=== PATIENT | male | born 1960 | race Caucasian/White ===

== ENCOUNTER → 2017-04-11 | Outpatient (CLI) | payer OTHER ==
[~2017-04-11] MED LIST: ASPEC81 PO; LPT40 PO; LSN25 PO; NTRSLP4 SL; PLV75 PO; TPRSR25 PO
[2017-04-11 13:18] LABS: BASO % 0.4 %; BASO ABS # 0.03 K/uL (0-0.2); COMPLETE YES; EOS % 4.1 %; HEMATOCRIT 45.8 % (42-52); IG% 0.1 %; LYMPH % 33.3 %; LYMPH ABS # 2.36 K/uL (1.2-3.4); MEAN CORPUSCULAR HEMOGLOBIN 31.8 pg (25-34); MEAN CORPUSCULAR HGB CONC 32.8 g/dl (32-36); MEAN PLATELET VOLUME 11.2 fL (7.4-10.4); MONO % 13.1 %; PLATELET COUNT 275 K/uL (130-400); RED BLOOD COUNT 4.72 M/uL (4.7-6.1); WHITE BLOOD COUNT 7.09 K/uL (4.8-10.8)
[2017-04-11 14:01] LABS: ESTIMATED AVERAGE GLUCOSE 120 mg/dl; HA1C FLAG Normal (Normal)
[2017-04-11 14:49] LABS: ALT/SGPT 49 U/L (12-78); AST/SGOT 27 U/L (15-37); BLOOD UREA NITROGEN 14 mg/dl (7-18); BUN/CREATININE RATIO 15.2 (10-20); CARBON DIOXIDE 28 mmol/L (21-32); CHLORIDE 105 mmol/L (98-107); CHOLESTEROL 150 mg/dl (0-200); CREATININE 0.91 mg/dl (0.60-1.40); GLUCOSE 107 mg/dl (70-99); POTASSIUM 4.4 mmol/L (3.5-5.1); SODIUM 141 mmol/L (136-145); TRIGLYCERIDES 55 mg/dl (0-150); VERY LOW DENSITY LIPOPROT CALC 11 mg/dl
[2017-04-11 14:51] LABS: ALB/GLOB RATIO 1.1 (0.9-2); ALKALINE PHOSPHATASE 80 U/L (45-117); CHOLESTEROL/HDL RATIO 3.1; HDL CHOLESTEROL 48 mg/dl; LDL CHOLESTEROL CALCULATED 91 mg/dl
[2017-04-11 15:07] LABS: CALCIUM 9.5 mg/dl (8.5-10.1)
== END | disposition home or self-care (01) ==
LOC: C.LABBC 10:44
PROVIDERS: ATTEND Family Medicine
DX: I10 Essential (primary) hypertension (principal); E78.5 Hyperlipidemia, unspecified; I25.10 Atherosclerotic heart disease of native coronary artery without angina pectoris; R73.01 Impaired fasting glucose

== ENCOUNTER → 2017-12-27 | Day surgery (SDC) | payer OTHER ==
[2017-12-19 10:49] VITALS: Ht 174 cm; Wt 102.3 kg
[~2017-12-27] VITALS: Ht 174 cm; Wt 102.3 kg
[~2017-12-27] MED LIST changes: +ATOR-54 PO; +LIDOCAINE HCL 2% 2 ML VIAL (20MG/ML) ONE; -LPT40 PO; -NTRSLP4 SL; -PLV75 PO; +PROPOFOL IV EMULSION 10 MG/ML 20 ML VIAL IV ONE; +SODIUM CHLORIDE 0.9% 500ML 500 ML IV ONE; -TPRSR25 PO
--- NOTE | 2017-12-27 10:41 | Endo History and Physical ---
History & Physical Date of Service: Dec 27, 2017. Chief Complaint: screening Referring Physician: Julieta Shafer PA-C History of Present Illness 57 yo CM who presents for screening colonoscopy. Past Surgical History Hx Cardiac Surgery: Yes (HEART CATH/1 STENTS) Hx Internal Defibrillator: No Hx Pacemaker: No Hx Abdominal Surgery: No Hx Post-Op Nausea and Vomiting: No Hx Cancer Surgery: No Hx Thoracic Surgery: No Hx Orthopedic: No Hx Urinary Tract Surgery: No Family History None Social History Smoking Status: Former Smoker Hx Substance Use: No Hx Alcohol Use: No (RARELY) Allergies Coded Allergies: No Known Allergies (Verified , 12/27/17) Current Medications Reported Home Medications Medications Dose Route/Sig Max Daily Dose Days Date Category Lipitor (Atorvastatin) 20 Mg Tab 20 Mg PO QAM 12/19/17 Reported Aspirin EC Low Dose (Aspirin) 81 Mg Ectab 81 Mg PO QAM 30 01/22/16 Rx Lisinopril 2.5 Mg Tab 2.5 Mg PO QAM 30 01/22/16 Rx Vital Signs Weight (Kilograms): 102.27 Height (Feet): 5 Height (Inches): 8.5 Date Time Temp Pulse Resp B/P (MAP) Pulse Ox O2 Delivery O2 Flow Rate FiO2 12/27/17 10:37 36.7 86 20 120/90 (100) 99 Room Air Physical Exam General Appearance: WD/WN, no apparent distress Respiratory/Chest: Auscultation: breath sounds normal Cardiovascular: Heart Auscultation: RRR Abdomen: Bowel Sounds: normal Inspection & Palpation: soft, non-distended, no tenderness, guarding & rebound Assessment and Plan Assessment: 57 yo CM who presents for screening colonoscopy. Plan: Proceed with colonoscopy.
--- NOTE | 2017-12-27 11:38 | Discharge Instructions ---
Endoscopy Patient Instructions Date / Procedure(s) Performed Dec 27, 2017. Colonoscopy Allergy Information Coded Allergies: No Known Allergies (Verified , 12/27/17) Discharge Date / Findings Dec 27, 2017. Colon polyp Internal hemorrhoids Medication Instructions Stopped Medication(s): Took ASA yesterday OK to resume all medications today as prescribed Reported Home Medications Medications Dose Route/Sig Max Daily Dose Days Date Category Lipitor (Atorvastatin) 20 Mg Tab 20 Mg PO QAM 12/19/17 Reported Aspirin EC Low Dose (Aspirin) 81 Mg Ectab 81 Mg PO QAM 30 01/22/16 Rx Lisinopril 2.5 Mg Tab 2.5 Mg PO QAM 30 01/22/16 Rx Provider Instructions Activity Restrictions - No exercising or heavy lifting for 24 hours. - Do not drink alcohol the day of the procedure. - Do not drive a car or operate machinery until the day after the procedure. - Do not make any important decisions or sign important papers in 24 hours after the procedure. Following Day: - Return to full activity which may include returning to work/school. Diet Start your diet with liquids and light foods (jello, soup, juice, toast). Then eat your usual diet if not nauseated. Treatment For Common After Affects For mild abdominal pain, bloating, or excessive gas: - Rest - Eat lightly - Lie on right side Follow-Up Information Follow-up with Julieta Shafer PA-C as scheduled Anesthesia Information What You Should Know You have had a procedure that required some medicine to reduce anxiety and discomfort. This treatment is called moderate sedation. After receiving the treatment, you may be sleepy, but you will be able to breathe on your own. The effects of the treatment may last for several hours. Follow these instructions along with Activity/Diet recommendations noted above: * Do NOT do anything where dizziness or clumsiness would be dangerous. * Rest quietly at home today, then you can be up and about tomorrow. * Have a responsible person stay with you the rest of today. * You may have had an I.V. today. If so, you may take the dressing off later today. Recommendations Call your doctor if: * Trouble breathing * Continuous vomiting for more than 24 hours * Temperature above 101 degrees * Severe abdominal pain or bloating * Pain not relieved by pain medicine ordered * There is increased drainage or redness from any incision * A large amount of rectal bleeding greater than 2-3 tablespoons. (If you had a polyp/s removed or have hemorrhoids, a small amount of blood - from the rectum is to be expected.) * You have any unanswered questions or concerns. IN THE EVENT OF A SERIOUS EMERGENCY, GO TO THE NEAREST EMERGENCY ROOM Your discharge instructions were prepared by provider Hay Subramanian. Patient Instructions Signature Page Lewis Benoit Patient (or Guardian) Signature/Date: I have read and understand the instructions given to me by my caregivers. Caregiver/RN/Doctor Signature/Date: The above-named patient and/or guardian has received patient instructions on this date. + Original Patient Signature Page (only) stays with chart. Please make copy for patient.
--- NOTE | 2017-12-27 11:42 | GI REPORT ---
Procedure Date: 12/27/2017 11:06 AM Procedure: Colonoscopy Indications: Screening for colorectal malignant neoplasm Medicines: Monitored Anesthesia Care Complications: No immediate complications. Estimated Blood Loss: Estimated blood loss: none. Procedure: Pre-Anesthesia Assessment: - Prior to the procedure, a History and Physical was performed, and patient medications and allergies were reviewed. The patient's tolerance of previous anesthesia was also reviewed. The risks and benefits of the procedure and the sedation options and risks were discussed with the patient. All questions were answered, and informed consent was obtained. Prior Anticoagulants: The patient has taken aspirin, last dose was 1 day prior to procedure. ASA Grade Assessment: III - A patient with severe systemic disease. After reviewing the risks and benefits, the patient was deemed in satisfactory condition to undergo the procedure. After I obtained informed consent, the scope was passed under direct vision. Throughout the procedure, the patient's blood pressure, pulse, and oxygen saturations were monitored continuously. The scope was introduced through the anus and advanced to the terminal ileum. The colonoscopy was performed without difficulty. The patient tolerated the procedure well. The quality of the bowel preparation was good. The terminal ileum, ileocecal valve, appendiceal orifice, and rectum were photographed. Findings: The perianal and digital rectal examinations were normal. A 3 mm polyp was found in the descending colon. The polyp was sessile. The polyp was removed with a cold snare. Resection was complete, but the polyp tissue was not retrieved. Non-bleeding internal hemorrhoids were found during retroflexion. The hemorrhoids were small. Impression: - One 3 mm polyp in the descending colon, removed with a cold snare. Complete resection. Polyp tissue not retrieved. - Non-bleeding internal hemorrhoids. Recommendation: - Resume previous diet. - Continue present medications. - Repeat colonoscopy in 5 years for surveillance. - Return to primary care physician as previously scheduled. Hay Subramanian DO 12/27/2017 11:41:38 AM This report has been signed electronically. Note Initiated On: 12/27/2017 11:06 AM I attest to the content of the Intraoperative Record and orders documented therein, exceptions below
[2017-12-27 12:02] VITALS: BP 123/74; PULSE 54; O2SAT 98
--- NOTE | 2017-12-27 12:29 | Anesthesiology Progress Note ---
Anesthesia Post Op Note Date & Time Dec 27, 2017 at 12:29 Vital Signs Pain Intensity: 0 Vital Signs Past 12 Hours Date Time Temp Pulse Resp B/P (MAP) Pulse Ox O2 Delivery O2 Flow Rate FiO2 12/27/17 12:02 54 18 123/74 (90) 98 Room Air 12/27/17 11:47 69 18 113/82 (92) 98 Room Air 12/27/17 11:32 82 16 111/71 (84) 96 Room Air 12/27/17 10:37 36.7 86 20 120/90 (100) 99 Room Air Notes Mental Status: alert / awake / arousable, participated in evaluation Pt Amnestic to Procedure: Yes Nausea / Vomiting: adequately controlled Pain: adequately controlled Airway Patency, RR, SpO2: stable & adequate BP & HR: stable & adequate Hydration State: stable & adequate Anesthetic Complications: no major complications apparent
== END | disposition home or self-care (01) ==
LOC: C.GI 10:15
PROVIDERS: ATTEND Internal Medicine
DX: Z12.11 Encounter for screening for malignant neoplasm of colon (principal); D12.4 Benign neoplasm of descending colon; K64.8 Other hemorrhoids; Z87.891 Personal history of nicotine dependence